=== PATIENT | female | born 1985 | race Caucasian/White ===

== ENCOUNTER 2018-05-09 09:39 | Inpatient (IN) | payer BC ==
[2018-05-09] MEDS ORDERED: LACTATED RINGERS 1,000 ML IV ONE (10:29)
[2018-05-09] MEDS ORDERED: ceFAZolin IN SWFI 2 GM/20 ML SYRINGE IVP ONE (10:29)
[2018-05-09] MEDS ORDERED: CITRIC ACID-SODIUM CITRATE 15 ML CUP PO ONE (10:29)
[2018-05-09] MEDS ORDERED: LACTATED RINGERS 1,000 ML IV SCH ×2 (10:30→13:00)
[2018-05-09 10:44] VITALS: BMI 36.0
[2018-05-09 10:58] LABS: Basophils % (A) 0 %; Eosinophils # (A) 0.1 k/uL (0-0.7); Eosinophils % (A) 1 %; HCT 40.7 % (34.0-46.0); HGB 13.2 gm/dL (11.4-16.0); Lymphocytes # (A) 1.3 k/uL (1.0-4.8); Lymphocytes % (A) 16 %; MCH 28.8 pg (25.0-35.0); MCHC 32.4 g/dL (31.0-37.0); Mean Platelet Volume 8.6; Monocytes # (A) 0.7 k/uL (0-1.0); Monocytes % (A) 9 %; Neutrophils # (A) 5.9 k/uL (1.3-7.7); Neutrophils % (A) 72 %; Platelet Count 194 k/uL (150-450); RBC 4.57 m/uL (3.80-5.40); RDW 13.4 % (11.5-15.5); WBC 8.1 k/uL (3.8-10.6)
[2018-05-09] MEDS ORDERED: KETOROLAC 30 MG/ML 1 ML VIAL ONE (11:57)
[2018-05-09] MEDS ORDERED: ONDANSETRON 4 MG/2 ML VIAL ONE (11:57)
[2018-05-09] MEDS ORDERED: NALBUPHINE 10 MG/ML VIAL (10ML MDV) ONE (11:57)
[2018-05-09] MEDS ORDERED: MORPHINE SULFATE (PF) 0.3 MG/0.3 ML SYR ONE (11:57)
[2018-05-09] MEDS ORDERED: ePHEDrine SULFATE/0.9% NACL/PF 50 MG/5 ML SYRINGE IV ONE (11:57)
[2018-05-09] MEDS ORDERED: OXYTOCIN 10 UNIT/ML 1 ML VIAL ONE (11:57)
--- NOTE | 2018-05-09 12:02 | P.HPOB ---
History of Present Illness H&P Date: 05/09/18 Chief Complaint: Here for elective and tubal ligation This is a 33-year-old white female 3 para 2001 EDC 05/15/2018 at 39 and one sevenths weeks' gestation. Patient is presenting today for repeat low transverse section, also requesting tubal ligation, consents signed. She denies vaginal bleeding or fluid leakage. Fetus is been active throughout the . Past medical history is essentially negative. Past surgical history sections 2012, 2015. Current medications vitamins daily. ALLERGIES none known. Family history significant for diabetes, hypertension, thyroid disorder, liver failure, colon cancer. Social history patient is , she works at a local high school, she has never been a smoker and denies alcohol or drug use with the . history is significant for blood type A-, broke and given. Rubella status immune. Urine culture, hepatitis B surface antigen, HIV testing, gonorrhea and chlamydia cultures, ultrasound all negative. One-hour Glucola 54. Group B strep cultures positive. On exam this is a pleasant white female who is 5 foot 2 inches, 197 pounds, vital signs are stable and patient is afebrile including initial blood pressure 115/65. The general physical exam is within normal limits. The cervix is closed, posterior, long, vertex. heart rate is consistent with reactive NST. Impression: 39 and one sevenths week intrauterine , 2 previous C- sections, undesired fertility, group B strep cultures positive. Plan: We will proceed with antibiotic prophylaxis, and repeat low transverse section with tubal ligation utilizing Filshie clips. All risks benefits and alternatives have been discussed in detail. Anesthesia staff present and aware. Review of Systems Constitutional: Reports as per HPI Past Medical History Past Medical History: No Reported History History of Any Multi-Drug Resistant Organisms: None Reported Past Surgical History: Section Additional Past Surgical History / Comment(s): 08/06/2013 Past Anesthesia/Blood Transfusion Reactions: No Reported Reaction Past Psychological History: No Psychological Hx Reported Smoking Status: Never smoker Past Alcohol Use History: None Reported Past Drug Use History: None Reported - Past Family History Father Family Medical History: Hypertension Medications and Allergies Home Medications Medication Instructions Recorded Confirmed Type Vit 84/Iron/FA 1/Dha 1 cap PO DAILY 12/04/15 05/09/18 History [Prenate Essential Softgel] Allergies Allergy/AdvReac Type Severity Reaction Status Date / Time No Known Allergies Allergy Verified 05/09/18 10:29 Exam Vital Signs Temp Pulse Resp BP Pulse Ox 05/09/18 10:38 98.1 F 85 18 115/65 100 Intake and Output 05/08/18 05/09/18 05/09/18 22:59 06:59 14:59 Other: Weight 89.358 kg See dictation under HPI please Results Result Diagrams: 05/09/18 10:25 Assessment and Plan Assessment: 39 and one sevenths week intrauterine , positive group B strep cultures , undesired fertility, 2 previous sections planning repeat . Plan: We will proceed with low transverse section and tubal ligation utilizing Filshie clips, and antibiotic prophylaxis as appropriate. Time with Patient: Less than 30
[2018-05-09] MEDS ORDERED: NALBUPHINE 10 MG/ML VIAL (10ML MDV) IV PRN (12:25)
[2018-05-09] MEDS ORDERED: NALOXONE 0.4 MG/ML 1 ML VIAL IV PRN ×2 (12:25→12:46)
[2018-05-09] MEDS ORDERED: MORPHINE SULFATE 4 MG/ML SYRINGE IVP PRN (12:25)
[2018-05-09] MEDS ORDERED: ONDANSETRON 4 MG/2 ML VIAL IVP PRN ×2 (12:25→12:46)
[2018-05-09] MEDS ORDERED: diphenhydrAMINE 50 MG/ML 1 ML VIAL IVP PRN ×3 (12:25→12:46)
[2018-05-09] MEDS ORDERED: ZOLPIDEM 5 MG TAB PO PRN (12:46)
[2018-05-09] MEDS ORDERED: ACETAMINOPHEN TAB 325 MG TAB PO PRN ×2 (12:46→12:48)
[2018-05-09] MEDS ORDERED: diphenhydrAMINE 25 MG CAP PO PRN (12:46)
[2018-05-09] MEDS ORDERED: METOCLOPRAMIDE 5 MG/ML 2 ML VIAL IVP PRN (12:46)
[2018-05-09] MEDS ORDERED: diphenhydrAMINE 50 MG CAP PO PRN (12:46)
--- NOTE | 2018-05-09 12:46 | P.OP ---
Date of Procedure: 05/09/18 Preoperative Diagnosis: 2 previous sections, undesired fertility, 39 and one sevenths week intrauterine , positive group B strep cultures Postoperative Diagnosis: Same, liveborn male infant, right occiput transverse position Procedure(s) Performed: Repeat low transverse section, tubal ligation with Filshie clips Anesthesia: spinal Surgeon: Millie Willson Dust Handler #1: Cody Serrano Estimated Blood Loss (ml): 600 IV fluids (ml): 800 Urine output (ml): 100 Pathology: none sent Condition: stable Disposition: PACU Operative Findings: Liveborn male infant, scores 9 and 9 at one and 5 minutes, 7 lbs. 15 oz., 3590 g, normal-appearing tubes and ovaries. Description of Procedure: Patient is brought to the operating suite where a spinal with Duramorph is administered without difficulty. She's placed in the dorsal supine position with left lateral uterine displacement. Temple catheter to direct drainage. Antibiotics are given. The appropriate timeout was performed to assure proper patient and procedural identification. The abdomen is prepped and draped in usual sterile fashion. The analgesia is checked and noted to be adequate. A repeat low transverse skin incision is made in this is carried down through the subcutaneous tissue to the fascia. Fascia is isolated, scored, and extended bilaterally with Cesar scissors. Peritoneum is next identified and incised, there is no bowel or bladder involvement. Bladder flap is taken down with Metzenbaum scissors and at all times Well from the operative field to avoid bladder and/or ureteral injury. The low uterine segment is very thin. It is entered in a transverse fashion with a knife, fluid is clear. The incision is extended with blunt dissection. The 's head is delivered right occiput transverse, there is no nuchal cord noted. The oropharynx, nasopharynx, and external nares were all bulb suctioned on the abdomen. Patient is officially delivered of a liveborn male infant at 1216 hrs. Umbilical cord is doubly clamped and ligated, he is handed to waiting nurses for evaluation where scores of 9 and 9 at one and 5 minutes respectively are given. The placenta is delivered manually, it is inspected and noted to be intact with trivascular cord at 1217 hrs. Uterus is then externalized and massaged. It is swept clean with a sterile sponge to avoid any retained products of conception. The uterus is closed in a single full-thickness stitch, locking, 0 Vicryl suture for excellent reapproximation. Temple is noted to be draining clear urine. Bilateral tubes and ovaries are inspected and noted to be normal. Filshie clips are placed in the isthmic portion of both tubes, with care to traverse the entire diameter of the tube into the mesal salpinx. Fimbriated ends are identified for proper placement. The abdomen is then suctioned posterior to the uterus, with suction on guard. The uterus is gently placed back into the abdominal cavity. Bilateral gutters are inspected and cleaned. Peritoneum was allowed to close by secondary intention. Hemostasis is excellent. Fascia is closed in a running stitch of 0 Vicryl with over ligation in the midline. Subcutaneous tissue is irrigated, noted to be clean and dry. It is reapproximated with a running stitch of 3-0 Vicryl. 4-0 undyed Monocryl is used in a subcuticular manner for final skin closure. Steri-Strips were applied to the wound along with a dressing. Uterus is massaged. Total estimated blood loss 600 mL's. All sponge needle and enhancement counts are correct at the end of the procedure. Patient is requesting circumcision for her infant son.
[2018-05-09] MEDS: KETOROLAC 30 MG/ML 1 ML VIAL IVP PRN (19:35)
[2018-05-09] MEDS: SENNOSIDES-DOCUSATE SODIUM 1 EACH TAB PO SCH (19:36)
[2018-05-09] MEDS ORDERED: Rhogam IMMUNE GLOBULIN 1,500 UNIT/1 ML IM ONE (22:48)
[2018-05-10] MEDS: KETOROLAC 30 MG/ML 1 ML VIAL IVP PRN ×2 (01:44→07:34)
[2018-05-10] MEDS: SENNOSIDES-DOCUSATE SODIUM 1 EACH TAB PO SCH ×2 (07:34→20:44)
--- NOTE | 2018-05-10 07:35 | P.PN ---
Subjective Progress Note Date: 05/10/18 Principal diagnosis: Postoperative day #1 Positive flatus. Has not urinated spontaneously. No complaints pain. Objective - Vital Signs Vital signs: Vital Signs Temp 98.1 F 05/10/18 04:00 Pulse 63 05/10/18 04:00 Resp 14 05/10/18 05:00 BP 100/60 05/10/18 04:00 Pulse Ox 98 05/10/18 05:00 Intake & Output 05/09/18 05/10/18 05/10/18 18:59 06:59 18:59 Intake Total 1300 Output Total 3000 Balance 1300 -3000 Weight 89.358 kg Intake: Intake, IV Titration 1300 Amount Lactated Ringers 1,000 ml 300 @ 125 mls/hr IV .Q8H FAITH Rx#:[id number] Lactated Ringers 1,000 ml 1000 @ 4000 mls/hr IV .Q15M ONE Rx#:[id number] Output: Urine 3000 Uretheral (Temple) 1500 Other: Voiding Method Indwelling Catheter - Constitutional General appearance: Present: average body habitus, cooperative - EENT Eyes: Present: PERRLA ENT: Present: hearing grossly normal - Neck Neck: Present: normal ROM - Respiratory Respiratory: bilateral: CTA - Cardiovascular Rhythm: regular - Gastrointestinal Gastrointestinal Comment(s): Fundus firm, midline, symmetric, 18 week size. Incision clean and dry, intact, Steri-Strips in place. - Integumentary Integumentary: Present: normal, normal turgor - Neurologic Neurologic: Present: CNII-XII intact - Musculoskeletal Musculoskeletal: Present: gait normal, strength equal bilaterally - Psychiatric Psychiatric: Present: A&O x's 3, appropriate affect, intact judgment & insight - Labs CBC & Chem 7: 05/09/18 10:25 Assessment and Plan Assessment: Postoperative day #1. Doing well. Plan: Continue postoperative care today. Likely circumcision discharge home tomorrow morning. Advanced diet and activity. Time with Patient: Less than 30
[2018-05-10 09:00] LABS: Basophils % (A) 0 %; Eosinophils % (A) 0 %; HCT 34.3 % (34.0-46.0); HGB 11.2 gm/dL (11.4-16.0); Lymphocytes # (A) 1.1 k/uL (1.0-4.8); Lymphocytes % (A) 9 %; MCH 29.4 pg (25.0-35.0); MCHC 32.6 g/dL (31.0-37.0); Mean Platelet Volume 8.1; Monocytes # (A) 0.6 k/uL (0-1.0); Monocytes % (A) 4 %; Neutrophils # (A) 10.7 k/uL (1.3-7.7); Neutrophils % (A) 86 %; Platelet Count 177 k/uL (150-450); RBC 3.81 m/uL (3.80-5.40); RDW 13.4 % (11.5-15.5); WBC 12.5 k/uL (3.8-10.6)
--- NOTE | 2018-05-10 09:20 | P.PN ---
Progress Note - Text Date: 05/10/2018 Time: 07 The patient is status post section Vital signs stable VAS: 0-10 Patient has no complaints of pain. The patient incurred some minimal itching yesterday, this itching is now subsiding. Pain meds to be managed by service.
[2018-05-10] MEDS: HYDROcodone/APAP 5-325MG 1 EACH TAB PO PRN ×2 (12:39→20:42)
[2018-05-10] MEDS: IBUPROFEN 600 MG TAB PO PRN (16:34)
[2018-05-11] MEDS: IBUPROFEN 600 MG TAB PO PRN ×3 (00:27→12:10)
[2018-05-11 01:53] VITALS: RESP 16
[2018-05-11] MEDS: SENNOSIDES-DOCUSATE SODIUM 1 EACH TAB PO SCH (08:46)
--- NOTE | 2018-05-11 09:16 | P.DS ---
Providers Date of admission: 05/09/18 09:39 Expected date of discharge: 05/11/18 Attending physician: Millie Willson Primary care physician: Stated None Hospital Course: This is a 33-year-old white female 3 para 2002 EDC 05/15/2018 at 39 and one sevenths weeks' gestation. Patient presented for repeat low transverse section and tubal ligation. She has had 2 previous C-sections and is declining the option for . has been unremarkable, group B strep cultures positive, rubella status immune. Blood type A negative. Please see dictated history and physical for details. Patient underwent a repeat low transverse section and gave to a liveborn male infant with scores of 9 and 9 at one and 5 minutes respectively. Estimated blood loss was 600 mL's. Surgery was unremarkable. weighed 7 lbs. 15 oz. or 3590 g. Please see my dictated operative note for details. The spring the patient is doing well. She is voiding, ambulating and passing flatus without difficulty. Vital signs are stable and she is afebrile. Fundus is firm and in the midline, symmetric and 18 week size. Extremities are negative for edema. [place] infant is doing well, circumcision is about to be performed. Patient is being discharged home in very good condition. She will follow-up with me in the office in 2 weeks for incision check. I have reminded her no intercourse, tampons or douching. She will use [id number] Advil or Aleve as needed for analgesia. She will continue taking her vitamin daily. She will call with any fevers shakes or chills, foul smelling or copious lochia , with the passage of large blood clots, with any pain not alleviated by over- the-counter products, with any incisional concerns, difficulties breast-feeding , or indeed with any issues. No car driving for 2 weeks. No heavy lifting. Limited stair climbing. Patient Condition at Discharge: Good Plan - Discharge Summary New Discharge Prescriptions: No Action Vit 84/Iron/FA 1/Dha [Prenate Essential Softgel] 1 cap PO DAILY Discharge Medication List Vit 84/Iron/FA 1/Dha [Prenate Essential Softgel] 1 cap PO DAILY [History] Follow up Appointment(s)/Referral(s): Millie Willson MD [STAFF PHYSICIAN] - 2 Weeks Discharge Disposition: HOME SELF-CARE
[2018-05-11 10:01] VITALS: BP 136/68; PULSE 92; TEMP 98.1
== END 2018-05-11 12:55 | disposition home or self-care (01) | DRG 766 ==
LOC: 4FBP 09:39
PROVIDERS: ADMIT Obstetrics & Gynecology; ATTEND Obstetrics & Gynecology
PROC: 0UL70CZ Occlusion of Bilateral Fallopian Tubes with Extraluminal Device, Open Approach (ICD-10-PCS; 2018-05-09)
PROC: 10D00Z1 Extraction of Products of Conception, Low, Open Approach (ICD-10-PCS; principal; 2018-05-09 12:00)
DX: O34.211 Maternal care for low transverse scar from previous cesarean delivery (principal); Z37.0 Single live birth; O99.824 Streptococcus B carrier state complicating childbirth; Z3A.39 39 weeks gestation of pregnancy; Z30.2 Encounter for sterilization; Z80.0 Family history of malignant neoplasm of digestive organs; Z82.49 Family history of ischemic heart disease and other diseases of the circulatory system; Z83.3 Family history of diabetes mellitus; Z83.49 Family history of other endocrine, nutritional and metabolic diseases; Z83.79 Family history of other diseases of the digestive system
CPT/HCPCS: 85025; 85461; 86850; 86900; 86901